=== PATIENT | male | born 1965 | race Caucasian/White ===

== ENCOUNTER 2025-01-18 16:30 | Inpatient (IN) ==
--- NOTE | 2025-01-18 17:22 | Emergency Department Note ---
Impression & Plan Acute UTI, Fever ED Provider Note NAME: JOSE BEAN AGE: 59 SEX: M : 1965 ARRIVES VIA: Walk-In INFORMANT: Patient, ED PROVIDER(S): Modesto Krause MD CHIEF COMPLAINT: Chills, constipation MEDICAL DECISION MAKING: Patient presents due to concern for difficulty with having a bowel movement and chills. IV was established and blood work was obtained. Patient ordered IV fluids KUB and labs test. Patient did have a PVR that showed only 50. No active retention. The patient's blood work showed a white count of 13.9 with a normal hemoglobin and platelet count kidney function is unremarkable. Patient did eventually spike a fever. The patient was ordered IV Tylenol and subsequently IV Toradol. Patient was covered with IV Zosyn. Urinalysis does show concern for possible UTI. Lyme's negative. Patient had complained of some prior prostate issues and unclear as to what the patient could have prostatitis. CT abdomen pelvis was ordered to evaluate the abdomen pelvis given the patient's symptoms. Negative acute. I did inform the patient patient's at bedside of the findings I did speak the on-call hospital service Dr. Pablo and the patient was admitted to the medicine service. Discussion w/ other healthcare providers: Dr. Pablo inpatient medicine service Prior /Outside records reviewed: None Differential diagnosis: Constipation, UTI, BPH, bowel obstruction, ileus, Eveline's, Lyme's, dehydration among others were considered Diagnostics, as interpreted by me: ECG: Sinus with first-degree AV block, rate of 77 prolonged [place] normal QRS duration, normal axis no ST elevations Q-wave noted in lead III. Cardiac monitoring: An order was placed for continuous cardiac monitoring. The monitor shows a rate of 89 with sinus rhythm. Patient was placed on pulse oximetry Medical decision rules: None Imaging studies: I informally interpreted the patient's KUB does not show obvious obstruction with formal report to follow. HPI: Patient presents due to concern for chills and difficulty with having a bowel movement. The patient states that the last time he was able to have a good bowel movement was yesterday. Patient states that is gone and tried to have a bowel movement 10 or so times a day but without any actual bowel movement. Patient states that he had some associated pressure pain discomfort with trying to urinate. No reported history of UTIs but reports that he did have a prostate issue years ago. Patient currently does not have an active doctor as family physician retired. Patient is not take anything for symptoms other than drinking water. He has noticed some chills and was concerned about Lyme's. Patient denies any head or neck pain. Patient denies any prior history of bowel obstruction or abdominal surgeries. PAST MEDICAL HISTORY: See Below PAST SURGICAL HISTORY: See Below SOCIAL HISTORY: See Below HOME MEDICATIONS: See Below ALLERGIES: See Below VITALS: See Below PHYSICAL EXAMINATION: GENERAL: NAD, non-toxic. Wearing glasses. EYE EXAM: Normal conjunctiva. PERRL, no anisocoria and EOM's grossly intact w/o pain. OROPHARYNX: Moist mucus membranes, grossly normal dentition. NECK: Trachea midline, no stridor. Supple, no nuchal rigidity, no adenopathy, non-tender. No signs of meningismus. FROM of the neck with good chin to chest and neck extension. LUNGS: Clear to auscultation. Normal chest wall mechanics. HEART: NSR, no MRG. ABDOMEN: Abdomen soft, non-tender, no masses, no rebound or guarding. Bowel sounds present. BACK: No CVA TTP. SKIN: No rashes and no bruising. UPPER EXTREMITIES: Upper extremities are grossly normal. LOWER EXTREMITIES: Grossly normal, no edema. NEURO EXAM: Awake and alert, follows commands, no obvious facial asymmetry, normal speech, moves all 4 extremities. Past Med/Surg History Problem List (Updated 01/20/25 @ 16:25 by Modesto Krause MD) Fever (Acute) Elevated PSA Acute UTI (Acute) Social History Smoking Status: Former smoker Second Hand Exposure: No; Do You Dip or Chew Tobacco: No; Hx Alcohol Use: Yes Hx Substance Use: No Preferred Language: Turkish Communication Ability: Effective Finance Mgr Required: No Beliefs That Will Affect Care: None Current Living Situation: Spouse Other Information That Helps Us Care for You: No Feels Safe at Home: Yes Safety Concerns: Feels Safe At This Time Assistive Devices: Glasses Allergies Allergies Allergy/AdvReac Type Severity Reaction Status Date / Time No Known Allergies Allergy Verified 01/18/25 17:13 Home Meds Home Medications Medication Instructions Recorded Confirmed ibuprofen 200 mg tablet (Advil) 400 mg PO Q6H PRN Pain 07/04/25 07/04/25 Results & Data (ED) Vital Signs Vital Signs - 24 hr 01/18/25 16:31 01/18/25 16:53 Temperature 37.5 C Temperature Source Oral Pulse Rate 95 H 90 Respiratory Rate 20 Respiratory Effort / Characteristics Non-Labored Spontaneous Respiratory Depth Normal Blood Pressure 176/97 H Blood Pressure Mean 123 Pulse Oximetry 97 Oxygen Delivery Method Room Air Sepsis Recent Fever Within 48 Hours No Sepsis New/Unexplained Change in Mental Status N/A Sepsis Action Taken by Nursing No Action Required Home Medications Current Medication List: was personally reviewed by tn Laboratory Data Attestation: I reviewed the patient's lab results. 01/20/25 07:18 01/20/25 07:18 Lab Results 01/18/25 01/18/25 01/18/25 Range/Units 17:44 18:31 19:54 WBC 13.91 H (4.8-10.8) K/ul RBC 5.10 (4.70-6.10) M/uL Hgb 16.2 (14.0-18.0) g/dl Hct 47.3 (42.0-52.0) % MCV 92.7 (80.0-100.0) fL MCH 31.8 (25.0-34.0) pg MCHC 34.2 (32.0-36.0) g/dL RDW Std Deviation 42.9 (36.4-46.3) fL RDW Coeff of Sanju 12.6 (11.5-14.5) % Plt Count 185 (130-400) K/uL MPV 10.0 (9.4-12.4) fL Immature Gran % (Auto) 0.6 % Neut % (Auto) 81.3 % Lymph % (Auto) 7.8 % Sully % (Auto) 9.9 % Eos % (Auto) 0.2 % Baso % (Auto) 0.2 % Neut # (Auto) 11.30 H (1.40-6.50) K/uL Lymph # (Auto) 1.09 L (1.20-3.40) K/uL Sully # (Auto) 1.38 H (0.11-0.59) K/uL Eos # (Auto) 0.03 (0.00-0.50) K/uL Baso # (Auto) 0.03 (0.00-0.20) K/uL Immature Gran # (Auto) 0.08 (0.01-0.20) K/uL Sodium 136 (136-145) mmol/L Potassium 4.1 (3.5-5.1) mmol/L Chloride 103 (98-107) mmol/L Carbon Dioxide 25 (21-32) mmol/L Anion Gap 8 (3-11) BUN 13 (6-23) mg/dl Creatinine 0.99 (0.6-1.4) mg/dl Est Cr Clr Drug Dosing 102.7 ml/min eGFR 87.75 BUN/Creatinine Ratio 13.1 (10-20) Glucose 94 (70-99(Fasting)) mg/dl Lactate 0.9 (0.4-2.0) mmol/L Calcium 8.5 L (8.6-10.3) mg/dl Total Bilirubin 2.0 H (0.2-1.0) mg/dl AST 22 (13-39) U/L ALT 23 (7-52) U/L Alkaline Phosphatase 61 (34-104) U/L Total Protein 7.3 (6.0-8.3) gm/dl Albumin 4.3 (3.4-5.0) gm/dl Globulin 3.0 (2.5-4.0) gm/dl Albumin/Globulin Ratio 1.4 (0.9-2) Procalcitonin 0.08 (0-0.5) ng/ml Urine Color Yellow Urine Appearance Clear (Clear) Urine pH 7.0 (4.5-7.5) Ur Specific [place] 1.020 (1.000-1.030) Urine Protein Trace H (Negative) Urine Glucose (UA) Negative (Negative) Urine Ketones Negative (Negative) Urine Blood Negative (Negative) Urine Nitrite Negative (Negative) Urine Bilirubin Negative (Negative) Urine Urobilinogen Positive H (Negative) Ur Leukocyte Esterase 2+ H (Negative) Urine WBC (Auto) >50 H (0-5) /hpf Urine RBC (Auto) 3-5 H (0-2) /hpf U Hyaline Cast (Auto) 0-2 (0-2) /lpf U Epithel Cells (Auto) 0-2 (0-2) /hpf Urine Bacteria (Auto) 3+ H (None Seen) Urine Comment Lyme Disease Screen Negative (Negative) Staphylococcus sp PCR DETECTED A (NotDetected) Bld Cult ID Panel PCR See PCR Comment (NotDetected) Administered Medications Enoxaparin Sodium (Enoxaparin Inj 40 Mg/0.4 Ml Syr) 40 mg SQ PM KERRI Stop: 02/17/25 22:20 Last Admin: 01/19/25 20:20 Dose: 40 mg Documented By: Admin: 01/18/25 22:50 Dose: 40 mg Documented By: EKF Hydromorphone HCl (Hydromorphone Inj 0.5 Mg/0.5 Ml Syr) 0.5 mg IV Q6H PRN PRN Reason: Severe Pain (Scale 7, 8, 9,10) Stop: 02/01/25 22:20 Last Admin: 01/19/25 18:37 Dose: 0.5 mg Documented By: Admin: 01/18/25 23:09 Dose: 0.5 mg Documented By: EKF Acetaminophen (Ofirmev) 1,000 mg in 100 mls @ 400 mls/hr IV Q8H PRN PRN Reason: Pain or Fever Stop: 01/21/25 22:20 Last Infusion: 01/19/25 23:01 Dose: Infused Documented By: Admin: 01/19/25 22:45 Dose: 400 mls/hr Documented By: Infusion: 01/19/25 15:01 Dose: Infused Documented By: Admin: 01/19/25 14:42 Dose: 400 mls/hr Documented By: Infusion: 01/19/25 06:26 Dose: Infused Documented By: Admin: 01/19/25 06:11 Dose: 400 mls/hr Documented By: EKF Piperacillin Sod/Tazobactam Sod (Zosyn) 4.5 gm in 100 mls @ 25 mls/hr IV Q8H KERRI; Protocol Stop: 01/29/25 00:00 Last Admin: 01/20/25 16:00 Dose: 25 mls/hr Documented By: Infusion: 01/20/25 12:00 Dose: Infused Documented By: Admin: 01/20/25 08:00 Dose: 25 mls/hr Documented By: Infusion: 01/20/25 03:07 Dose: Infused Documented By: Admin: 01/19/25 23:06 Dose: 25 mls/hr Documented By: Infusion: 01/19/25 20:19 Dose: Infused Documented By: Admin: 01/19/25 16:04 Dose: 25 mls/hr Documented By: Infusion: 01/19/25 12:04 Dose: Infused Documented By: Admin: 01/19/25 08:04 Dose: 25 mls/hr Documented By: Infusion: 01/19/25 03:27 Dose: Infused Documented By: Admin: 01/18/25 23:27 Dose: 25 mls/hr Documented By: RAYMON Tamsulosin HCl (Tamsulosin Hcl 0.4 Mg Cap) 0.4 mg PO HS KERRI Stop: 02/18/25 20:59 Last Admin: 01/19/25 20:20 Dose: 0.4 mg Documented By: SNEHA Discontinued Medications Hydromorphone HCl (Hydromorphone Inj 0.5 Mg/0.5 Ml Syr) 0.25 mg IV NOW STA Stop: 01/18/25 20:22 Last Admin: 01/18/25 20:29 Dose: 0.25 mg Documented By: JUNE Sodium Chloride (Nss) 1,000 mls @ 999 mls/hr IV .Q1H1M STA Stop: 01/18/25 18:18 Last Infusion: 01/18/25 20:10 Dose: Infused Documented By: Admin: 01/18/25 18:43 Dose: 999 mls/hr Documented By: LULU Acetaminophen (Ofirmev) 1,000 mg in 100 mls @ 400 mls/hr IV NOW STA Stop: 01/18/25 18:58 Last Infusion: 01/18/25 19:06 Dose: Infused Documented By: Admin: 01/18/25 18:49 Dose: 400 mls/hr Documented By: JUNE Piperacillin Sod/Tazobactam Sod (Zosyn) 4.5 gm in 100 mls @ 200 mls/hr IV NOW ONE; Protocol Stop: 01/18/25 19:48 Last Infusion: 01/18/25 20:09 Dose: Infused Documented By: Admin: 01/18/25 19:32 Dose: 200 mls/hr Documented By: JUNE Sodium Chloride (Nss) 1,000 mls @ 999 mls/hr IV .Q1H1M ONE Stop: 01/18/25 20:19 Last Infusion: 01/18/25 22:03 Dose: Infused Documented By: Admin: 01/18/25 19:32 Dose: 999 mls/hr Documented By: JUNE Sodium Chloride (Nss) 1,000 mls @ 100 mls/hr IV .Q10H KERRI Stop: 01/20/25 01:17 Last Infusion: 01/20/25 01:21 Dose: Infused Documented By: Admin: 01/19/25 20:20 Dose: 100 mls/hr Documented By: Infusion: 01/19/25 19:08 Dose: Infused Documented By: Admin: 01/19/25 11:08 Dose: 125 mls/hr Documented By: Infusion: 01/19/25 10:51 Dose: Infused Documented By: Infusion: 01/19/25 03:27 Dose: 125 mls/hr Documented By: Infusion: 01/18/25 23:27 Dose: 0 mls/hr Documented By: Admin: 01/18/25 22:50 Dose: 125 mls/hr Documented By: EKF Ioversol (Optiray 320 100ml) 93 ml IV ONCE ONE Stop: 01/18/25 19:37 Last Admin: 01/18/25 19:36 Dose: 93 ml Documented By: AMERICA Ketorolac Tromethamine (Ketorolac Tromethamine 15 Mg/Ml Vial) 10 mg IV NOW ONE Stop: 01/18/25 19:09 Last Admin: 01/18/25 19:10 Dose: 10 mg Documented By: JUNE Ketorolac Tromethamine (Ketorolac Tromethamine 15 Mg/Ml Vial) 15 mg IV NOW ONE Stop: 01/19/25 00:38 Last Admin: 01/19/25 00:58 Dose: 15 mg Documented By: EKF Imaging Data Radiologist's Impression: KUB X-Ray 01/18/25 17:18 Exam: KUB. History: Constipation. Altered mental status. Comparison:None. Findings: Nonspecific bowel gas pattern with scattered prominent loops of small bowel gas. No appreciated mass. No unusual calcifications. Impression: Nonspecific nonobstructive bowel gas pattern. Electronically signed by Amadeo Martin 01-18-2025 7:24 PM Abdomen/Pelvis CT 01/18/25 19:19 Clinical History: Possible prostatitis Technique: Axial computed tomography images were obtained of the abdomen and pelvis after the administration of intravenous contrast. No prior CT is available for comparison. Findings: The liver is overall of normal size, attenuation, and contour with no sign of cirrhosis or significant fatty infiltration. No liver mass lesion is seen. The portal vein is patent. The gallbladder appears unremarkable. No bile duct dilatation is noted. The spleen is of normal size. No focal splenic lesion is evident. The pancreas appears normal with no sign of acute or chronic pancreatitis and no mass lesion noted. The pancreatic duct is of normal caliber. The adrenal glands appear unremarkable. No definite renal or proximal ureteral calculi are seen on this contrast-enhanced study. There is no hydronephrosis or perinephric stranding. No renal mass lesion is identified. The aorta is of normal caliber. No abdominal adenopathy is seen. The stomach appears normal. There is no sign of small bowel obstruction. There is mild diverticulosis without evidence of diverticulitis. There is no sign of appendicitis. No free intraperitoneal fluid or air is identified. No distal ureteral or bladder calculi are seen. No bladder mass lesion is evident. The iliac arteries are of normal caliber. No pelvic adenopathy is noted. The prostate is of normal size, with no obvious sign of prostatitis seen The lungs bases appear clear. No fracture is identified. No focal osseous lesion is seen Impression: 1. Diverticulosis without evidence of diverticulitis 2. Otherwise unremarkable CT of the abdomen and pelvis Electronically signed by Sebastien Jaimes 01-18-2025 7:50 PM Discharge Plan Visit Data Chief Complaint: Constipation Stated Complaint: ?PROSTATE,CONSTIPATION,FEELING UNWELL ED Provider: Modesto Krause Discharge Problem: Acute UTI, Fever Patient Disposition: Admitted As Inpatient Condition: Good Discharge Instructions Interventions: ED Discharge Assessment Last Done: 01/18/25 21:48 Discharge Problem: Fever Qualifiers: Fever type: unspecified Qualified Code(s): R50.9 - Fever, unspecified
[2025-01-18 18:03] LABS: Hematocrit (blood only) 47.3 % (42.0-52.0); Hemoglobin 16.2 g/dl (14.0-18.0); Immature Granulocytes # (auto) 0.08 K/uL (0.01-0.20); Immature Granulocytes % (auto) 0.6 %; Mean Corpuscular Hemoglobin 31.8 pg (25.0-34.0); Mean Corpuscular Volume 92.7 fL (80.0-100.0); Platelet Count 185 K/uL (130-400); RDW Standard Deviation 42.9 fL (36.4-46.3); Red Blood Count 5.10 M/uL (4.70-6.10); White Blood Count 13.91 K/ul (4.8-10.8)
[2025-01-18 18:22] LABS: Alanine Aminotransferase 23.0 U/L (7-52); Albumin Globulin Ratio 1.4 (0.9-2); Alkaline Phosphatase 61.0 U/L (34-104); Anion Gap 8.0 (3-11); Bilirubin,Total 2.0 mg/dl (0.2-1.0); Blood Urea Nitrogen 13.0 mg/dl (6-23); Calcium 8.5 mg/dl (8.6-10.3); Carbon Dioxide 25.0 mmol/L (21-32); Chloride 103.0 mmol/L (98-107); Creatinine Clr Calc Pharmacy 102.7 ml/min; Globulin 3.0 gm/dl (2.5-4.0); Glucose 94.0 mg/dl (70-99(Fasting)); Potassium 4.1 mmol/L (3.5-5.1); Sodium 136.0 mmol/L (136-145); Total Protein 7.3 gm/dl (6.0-8.3)
[2025-01-18] MEDS: SODIUM CHLORIDE 0.9% 1,000 ML IV STA (18:43)
[2025-01-18] MEDS: ACETAMINOPHEN 1,000 MG/100 ML VIAL IV STA (18:49)
[2025-01-18 18:57] LABS: Appearance Urine Clear (Clear); Bacteria Urine Automated 3+ (None Seen); Cast Urine Automated 0-2 /lpf (0-2); Epithelial Cell Urine Auto 0-2 /hpf (0-2); Glucose Urine UA Negative (Negative); WBC Urine Automated >50 /hpf (0-5)
[2025-01-18] MEDS: KETOROLAC TROMETHAMINE 15 MG/ML VIAL IV ONE (19:10)
--- NOTE | 2025-01-18 19:26 | XRay Report ---
Exam: KUB. History: Constipation. Altered mental status. Comparison:None. Findings: Nonspecific bowel gas pattern with scattered prominent loops of small bowel gas. No appreciated mass. No unusual calcifications. Impression: Nonspecific nonobstructive bowel gas pattern. Electronically signed by Amadeo Martin 01-18-2025 7:24 PM
[2025-01-18] MEDS: SODIUM CHLORIDE 0.9% 1,000 ML IV ONE (19:32)
[2025-01-18] MEDS: PIPERACILLIN/TAZOBACTAM 4.5 GM/100 ML BAG IV ONE (19:32)
[2025-01-18] MEDS: OPTIRAY 320 100ml IV ONE (19:36)
--- NOTE | 2025-01-18 19:50 | CT Scan Report ---
Clinical History: Possible prostatitis Technique: Axial computed tomography images were obtained of the abdomen and pelvis after the administration of intravenous contrast. No prior CT is available for comparison. Findings: The liver is overall of normal size, attenuation, and contour with no sign of cirrhosis or significant fatty infiltration. No liver mass lesion is seen. The portal vein is patent. The gallbladder appears unremarkable. No bile duct dilatation is noted. The spleen is of normal size. No focal splenic lesion is evident. The pancreas appears normal with no sign of acute or chronic pancreatitis and no mass lesion noted. The pancreatic duct is of normal caliber. The adrenal glands appear unremarkable. No definite renal or proximal ureteral calculi are seen on this contrast-enhanced study. There is no hydronephrosis or perinephric stranding. No renal mass lesion is identified. The aorta is of normal caliber. No abdominal adenopathy is seen. The stomach appears normal. There is no sign of small bowel obstruction. There is mild diverticulosis without evidence of diverticulitis. There is no sign of appendicitis. No free intraperitoneal fluid or air is identified. No distal ureteral or bladder calculi are seen. No bladder mass lesion is evident. The iliac arteries are of normal caliber. No pelvic adenopathy is noted. The prostate is of normal size, with no obvious sign of prostatitis seen The lungs bases appear clear. No fracture is identified. No focal osseous lesion is seen Impression: 1. Diverticulosis without evidence of diverticulitis 2. Otherwise unremarkable CT of the abdomen and pelvis Electronically signed by Sebastien Jaimes 01-18-2025 7:50 PM
[2025-01-18] MEDS: HYDROmorphone INJ 0.5 MG/0.5 ML SYR IV STA (20:29)
--- NOTE | 2025-01-18 20:32 | History & Physical Report ---
Date of Service January 18, 2025 Assessment & Plan (1) Acute UTI: Plan: 59-year-old male with no significant past medical history comes because of fever and urinary symptoms. Patient says since yesterday he feels like moving his bowels frequently and sitting on the commode and having small amounts of bowel movements. He denies any blood in the stools. Also having burning micturition. Patient says lately he is also having prostate issues with difficulty urin ating. And today developed fevers. Body aches. Headache. Nausea. Denies runny nose or sore throat. No chest pain or shortness of breath. No abdominal pain. No rash anywhere. Spiking temperature in the ER. Hemodynamics are okay. Patient states his family doctor retired and currently does not have any PCP. He was told he has diabetes in 2020 but then he lost 40 pounds and says his sugars are running okay. He says his blood pressure goes up when he gets stressed.Lyme screen negative Acute UTI ER empirically started on Zosyn which will be continued Will follow cultures Iv fluids Possible prostatitis Possible BPH Patient is having difficulty micturition CT abdomen pelvis is okay Will follow ESR, CRP and PSA levels Place on Flomax Antibiotics as above Consult urology in a.m. for further recommendations Obesity Counseling Question of diabetes Will check HbA1c levels and lipid profile Will monitor blood pressure DVT prophylaxis Lovenox Disposition Medical floor Full code History of Present Illness Chief Complaint: Acute UTI Primary Care Provider: NO PCP 59-year-old male with no significant past medical history comes because of fever and urinary symptoms. Patient says since yesterday he feels like moving his bowels frequently and sitting on the commode and having small amounts of bowel movements. He denies any blood in the stools. Also having burning micturition. Patient says lately he is also having prostate issues with difficulty urinating. And today developed fevers. Body aches. Headache. Nausea. Denies runny nose or sore throat. No chest pain or shortness of breath. No abdominal pain. No rash anywhere. Spiking temperature in the ER. Hemodynamics are okay. Patient states his family doctor retired and currently does not have any PCP. He was told he has diabetes in 2020 but then he lost 40 pounds and says his sugars are running okay. He says his blood pressure goes up when he gets stressed.Lyme screen negative. Past medical history. As mentioned above Past surgical history. Denies any surgeries. Social history. Quit smoking 40 years ago. Alcohol drinks about 1 beer a day. No drug use. Family history. Sister had breast cancer Allergies Allergy/AdvReac Type Severity Reaction Status Date / Time No Known Allergies Allergy Verified 01/18/25 17:13 Home Medications Medication Instructions Recorded Confirmed Type ibuprofen 200 mg tablet (Advil) 400 mg PO Q6H PRN Pain 01/18/25 01/18/25 History Past Med/Surg History Problem List (Updated 01/19/25 @ 08:54 by Aleksandr Michaud MD) Elevated PSA Acute UTI Social History Smoking Status: Former smoker Second Hand Exposure: No; Do You Dip or Chew Tobacco: No; Hx Alcohol Use: Yes Hx Substance Use: No Preferred Language: Slovak Communication Ability: Effective Practical Ministries Professor Required: No Beliefs That Will Affect Care: None Current Living Situation: Spouse Other Information That Helps Us Care for You: No Feels Safe at Home: Yes Safety Concerns: Feels Safe At This Time Assistive Devices: Glasses Review of Systems Review of Systems: All systems reviewed & are unremarkable except as noted in HPI & below Physical Exam Physical Exam: General- Not in acute distress Head- atraumatic Eyes- PERRL. ENT- oropharynx clear Neck- supple, no JVD. Lungs- clear to auscultation no wheezing or crackles Heart- regular rhythm; no murmur, no gallop. Abdomen- normal bowel sounds, soft, nontender, no distension Extremities- no pretibial edema, no erythema seen Neuro- alert, oriented PERRL, no facial palsy; no dysarthria; moves extremities Results & Data Results & Data Vital Signs (Past 12 Hours) Vital Signs Temp Pulse Resp BP Pulse Ox O2 Del Method 01/18/25 19:48 38.2 C H 01/18/25 19:30 86 17 122/78 94 01/18/25 19:07 38.2 C H 01/18/25 19:00 85 18 143/91 H 95 01/18/25 18:47 147/81 H 01/18/25 18:30 39.0 C H 01/18/25 17:00 86 16 172/103 H 95 01/18/25 16:53 90 01/18/25 16:31 37.5 C 95 H 20 176/97 H 97 Room Air Diagnostic Findings Laboratory Results WBC 13.91 K/ul (4.8-10.8) H 01/18/25 17:44 RBC 5.10 M/uL (4.70-6.10) 01/18/25 17:44 Hgb 16.2 g/dl (14.0-18.0) 01/18/25 17:44 Hct 47.3 % (42.0-52.0) 01/18/25 17:44 MCV 92.7 fL (80.0-100.0) 01/18/25 17:44 MCH 31.8 pg (25.0-34.0) 01/18/25 17:44 MCHC 34.2 g/dL (32.0-36.0) 01/18/25 17:44 RDW Std Deviation 42.9 fL (36.4-46.3) 01/18/25 17:44 RDW Coeff of Sanju 12.6 % (11.5-14.5) 01/18/25 17:44 Plt Count 185 K/uL (130-400) 01/18/25 17:44 MPV 10.0 fL (9.4-12.4) 01/18/25 17:44 Immature Gran % (Auto) 0.6 % 01/18/25 17:44 Neut % (Auto) 81.3 % 01/18/25 17:44 Lymph % (Auto) 7.8 % 01/18/25 17:44 [place] % (Auto) 9.9 % 01/18/25 17:44 Eos % (Auto) 0.2 % 01/18/25 17:44 Baso % (Auto) 0.2 % 01/18/25 17:44 Neut # (Auto) 11.30 K/uL (1.40-6.50) H 01/18/25 17:44 Lymph # (Auto) 1.09 K/uL (1.20-3.40) L 01/18/25 17:44 [place] # (Auto) 1.38 K/uL (0.11-0.59) H 01/18/25 17:44 Eos # (Auto) 0.03 K/uL (0.00-0.50) 01/18/25 17:44 Baso # (Auto) 0.03 K/uL (0.00-0.20) 01/18/25 17:44 Immature Gran # (Auto) 0.08 K/uL (0.01-0.20) 01/18/25 17:44 Sodium 136 mmol/L (136-145) 01/18/25 17:44 Potassium 4.1 mmol/L (3.5-5.1) 01/18/25 17:44 Chloride 103 mmol/L (98-107) 01/18/25 17:44 Carbon Dioxide 25 mmol/L (21-32) 01/18/25 17:44 Anion Gap 8 (3-11) 01/18/25 17:44 BUN 13 mg/dl (6-23) 01/18/25 17:44 Creatinine 0.99 mg/dl (0.6-1.4) 01/18/25 17:44 Est Cr Clr Drug Dosing 102.7 ml/min 01/18/25 17:44 eGFR 87.75 01/18/25 17:44 BUN/Creatinine Ratio 13.1 (10-20) 01/18/25 17:44 Glucose 94 mg/dl (70-99(Fasting)) 01/18/25 17:44 Lactate 0.9 mmol/L (0.4-2.0) 01/18/25 19:54 Calcium 8.5 mg/dl (8.6-10.3) L 01/18/25 17:44 Total Bilirubin 2.0 mg/dl (0.2-1.0) H 01/18/25 17:44 AST 22 U/L (13-39) 01/18/25 17:44 ALT 23 U/L (7-52) 01/18/25 17:44 Alkaline Phosphatase 61 U/L (34-104) 01/18/25 17:44 Total Protein 7.3 gm/dl (6.0-8.3) 01/18/25 17:44 Albumin 4.3 gm/dl (3.4-5.0) 01/18/25 17:44 Globulin 3.0 gm/dl (2.5-4.0) 01/18/25 17:44 Albumin/Globulin Ratio 1.4 (0.9-2) 01/18/25 17:44 Urine Color Yellow 01/18/25 18:31 Urine Appearance Clear (Clear) 01/18/25 18:31 Urine pH 7.0 (4.5-7.5) 01/18/25 18:31 Ur Specific [place] 1.020 (1.000-1.030) 01/18/25 18:31 Urine Protein Trace (Negative) H 01/18/25 18:31 Urine Glucose (UA) Negative (Negative) 01/18/25 18:31 Urine Ketones Negative (Negative) 01/18/25 18: Urine Blood Negative (Negative) 01/18/25 18: Urine Nitrite Negative (Negative) 01/18/25 18: Urine Bilirubin Negative (Negative) 01/18/25 18:31 Urine Urobilinogen Positive (Negative) H 01/18/25 18:31 Ur Leukocyte Esterase 2+ (Negative) H 01/18/25 18:31 Urine WBC (Auto) >50 /hpf (0-5) H 01/18/25 18:31 Urine RBC (Auto) 3-5 /hpf (0-2) H 01/18/25 18:31 U Hyaline Cast (Auto) 0-2 /lpf (0-2) 01/18/25 18:31 U Epithel Cells (Auto) 0-2 /hpf (0-2) 01/18/25 18:31 Urine Bacteria (Auto) 3+ (None Seen) H 01/18/25 18:31 Urine Comment 01/18/25 18:31 Lyme Disease Screen Negative (Negative) 01/18/25 17:44 Impressions KUB X-Ray 01/18/25 17:18 Exam: KUB. History: Constipation. Altered mental status. Comparison:None. Findings: Nonspecific bowel gas pattern with scattered prominent loops of small bowel gas. No appreciated mass. No unusual calcifications. Impression: Nonspecific nonobstructive bowel gas pattern. Electronically signed by Amadeo Martin 01-18-2025 7:24 PM Abdomen/Pelvis CT 01/18/25 19:19 Clinical History: Possible prostatitis Technique: Axial computed tomography images were obtained of the abdomen and pelvis after the administration of intravenous contrast. No prior CT is available for comparison. Findings: The liver is overall of normal size, attenuation, and contour with no sign of cirrhosis or significant fatty infiltration. No liver mass lesion is seen. The portal vein is patent. The gallbladder appears unremarkable. No bile duct dilatation is noted. The spleen is of normal size. No focal splenic lesion is evident. The pancreas appears normal with no sign of acute or chronic pancreatitis and no mass lesion noted. The pancreatic duct is of normal caliber. The adrenal glands appear unremarkable. No definite renal or proximal ureteral calculi are seen on this contrast-enhanced study. There is no hydronephrosis or perinephric stranding. No renal mass lesion is identified. The aorta is of normal caliber. No abdominal adenopathy is seen. The stomach appears normal. There is no sign of small bowel obstruction. There is mild diverticulosis without evidence of diverticulitis. There is no sign of appendicitis. No free intraperitoneal fluid or air is identified. No distal ureteral or bladder calculi are seen. No bladder mass lesion is evident. The iliac arteries are of normal caliber. No pelvic adenopathy is noted. The prostate is of normal size, with no obvious sign of prostatitis seen The lungs bases appear clear. No fracture is identified. No focal osseous lesion is seen Impression: 1. Diverticulosis without evidence of diverticulitis 2. Otherwise unremarkable CT of the abdomen and pelvis Electronically signed by Sebastien Jaimes 01-18-2025 7:50 PM Code Status & VTE Plan VTE Prophylaxis Plan VTE Prophylaxis will be ordered: Yes
[2025-01-18] MEDS: SODIUM CHLORIDE 0.9% 1,000 ML IV SCH (22:50)
[2025-01-18] MEDS: ENOXAPARIN INJ 40 MG/0.4 ML SYR SQ SCH (22:50)
[2025-01-18] MEDS: HYDROmorphone INJ 0.5 MG/0.5 ML SYR IV PRN (23:09)
[2025-01-18] MEDS: PIPERACILLIN/TAZOBACTAM 4.5 GM/100 ML BAG IV SCH (23:27)
[2025-01-19] MEDS: KETOROLAC TROMETHAMINE 15 MG/ML VIAL IV ONE (00:58)
[2025-01-19 06:09] LABS: Hematocrit (blood only) 45.3 % (42.0-52.0); Hemoglobin 15.1 g/dl (14.0-18.0); Immature Granulocytes # (auto) 0.08 K/uL (0.01-0.20); Immature Granulocytes % (auto) 0.5 %; Mean Corpuscular Hemoglobin 31.5 pg (25.0-34.0); Mean Corpuscular Volume 94.4 fL (80.0-100.0); Platelet Count 176 K/uL (130-400); RDW Standard Deviation 44.7 fL (36.4-46.3); Red Blood Count 4.80 M/uL (4.70-6.10); White Blood Count 15.32 K/ul (4.8-10.8)
[2025-01-19] MEDS: ACETAMINOPHEN 1,000 MG/100 ML VIAL IV PRN (06:11)
[2025-01-19 06:24] LABS: Anion Gap 8.0 (3-11); Blood Urea Nitrogen 11.0 mg/dl (6-23); Calcium 7.9 mg/dl (8.6-10.3); Carbon Dioxide 23.0 mmol/L (21-32); Chloride 107.0 mmol/L (98-107); Cholesterol 195.0 mg/dl (0-200); Creatinine Clr Calc Pharmacy 101.8 ml/min; Glucose 125.0 mg/dl (70-99(Fasting)); HDL Cholesterol 43.0 mg/dl; Magnesium 1.8 mg/dl (1.7-2.4); Potassium 3.6 mmol/L (3.5-5.1); Sodium 138.0 mmol/L (136-145); Triglycerides 115.0 mg/dl (0-150)
[2025-01-19 07:11] LABS: Hemoglobin A1C 6.0 % (4.5-5.6)
--- NOTE | 2025-01-19 08:54 | Urology Consultation ---
Date of Consultation January 19, 2025 Assessment & Plan (1) Acute UTI: (2) Elevated PSA: Plan 59-year-old male admitted with fevers and suspicion of urinary tract infection No acute urologic intervention necessary Continue broad-spectrum antibiotics and follow-up cultures. Narrow when the sensitivities return. Recommend a total of 10 to 14 days of antibiotics PSA is likely elevated due to acute infection and recommend repeating in 1 to 2 months Urology to follow peripherally. Message has been sent for follow-up for outpatient workup History of Present Illness Attending Physician: Lovely Jameson MD History of Present Illness 59-year-old male presenting to the emergency department on 01/18/2025 with fevers and urinary symptoms. Highest temperature was 38.9. Otherwise hemodynamically stable. Labs on arrival showed a white count of 13.9 and creatinine of 0.99. Labs today show a white count of 15.3 creatinine of 0.99. PSA was drawn which was mildly elevated at 4.42. Urinalysis was positive for leukocyte esterase, WBCs, RBCs and 3+ bacteria. CT scan of the abdomen pelvis was performed which I independently reviewed and shows no significant hydronephrosis or abnormalities. He was started on Zosyn. Urine culture is preliminarily growing Pseudomonas. Subjectively reports feeling better this morning Allergies Allergy/AdvReac Type Severity Reaction Status Date / Time No Known Allergies Allergy Verified 01/18/25 17:13 Home Medications Medication Instructions Recorded Confirmed Type ibuprofen 200 mg tablet (Advil) 400 mg PO Q6H PRN Pain 01/18/25 01/18/25 History Patient History Social History Smoking Status: Former smoker Second Hand Exposure: No; Do You Dip or Chew Tobacco: No; Hx Alcohol Use: Yes Hx Substance Use: No Preferred Language: Polish Communication Ability: Effective Police Lieutenant Required: No Beliefs That Will Affect Care: None Current Living Situation: Spouse Other Information That Helps Us Care for You: No Feels Safe at Home: Yes Safety Concerns: Feels Safe At This Time Assistive Devices: Glasses Physical Exam Physical Exam: General: Alert and oriented, no acute distress HEENT: Normocephalic, mucous membranes moist Pulmonary: Nonlabored respirations Abdomen: Nondistended Extremities: Moves all 4 spontaneously Neuro: No gross deficits Skin: Warm, dry, no rashes noted Results & Data Vital Signs (Past 12 Hours) Vital Signs Temp Pulse Resp BP Pulse Ox O2 Del Method 07/05/25 07:33 37.1 C 79 16 144/89 H 99 Room Air 01/19/25 06:42 37.3 C 01/19/25 06:09 38.9 C H 01/19/25 01:21 36.6 C 01/18/25 23:34 37.2 C 01/18/25 22:20 36.8 C 76 18 142/85 H 96 Room Air PG Care Time/CCT Total # of Minutes Spent Total Time Spent with Patient: Total time spent is greater than 50% in coordination of care (as documented) at patient's floor/unit and/or counseling patient: Coding Level of Care Code 76919 IN/OBS CONSULT LVL 3,45M Diagnoses Acute UTI N39.0 Elevated PSA R97.20
--- NOTE | 2025-01-19 10:30 | Hospitalist Progress Note ---
Date of Service January 19, 2025 Assessment & Plan (1) Acute UTI: Plan: 59-year-old male with no significant past medical history comes because of fever and urinary symptoms. Patient reported loose stool, burning micturition He also reported some difficulty urinating and urinary frequency. Acute UTI Possible prostatitis Urine culture growing pseudomonas Blood cultures still in lab Elevated CRP and PSA is 4.42 CT abd and pelvis did not show any acute abnormalities Continue IV zosyn Will follow up sensitivities Will need at least 2 weeks of antibiotics Continue flomax Obesity Prediabetes HbA1c 6 Life style modification education Monitor BP DVT prophylaxis Lovenox Full code I spent a total of 50 minutes coordinating, documenting and providing care for this patient excluding time spent in performance of separately billed services Admission and Anticipated Discharge Date Admission Date: January 18, 2025 Subjective Patient seen and examined Reports feeling better today Reports dysuria and freq are improving Denied abd pain, diarrhea, flank pain, cough, SOB Physical Exam Constitutional: + well hydrated; no acute distress Eyes: PERRL, conjunctivae normal, anicteric sclerae ENMT: external ear and nose normal, oropharynx normal Respiratory: normal respiratory effort, lungs clear to auscultation Cardiovascular: Rate/Rhythm: regular rate and regular rhythm Gastrointestinal (Abdomen): normal bowel sounds, soft, nontender, no hepatosplenomegaly Musculoskeletal: No pedal edema Neurologic: PERRL, EOMI, accommodation nl, no face palsy, no dysarthria Psychiatric: A+Ox3, euthymic affect Results & Data Results & Data Vital Signs (Past 12 Hours) Vital Signs Temp Pulse Resp BP Pulse Ox O2 Del Method 01/19/25 07:33 37.1 C 79 16 144/89 H 99 Room Air 01/19/25 06:42 37.3 C 01/19/25 06:09 38.9 C H 01/19/25 01:21 36.6 C 01/18/25 23:34 37.2 C Laboratory Results Abnormal lab results 01/18/25 01/18/25 01/19/25 Range/Units 17:44 18:31 05:32 WBC 13.91 H 15.32 H (4.8-10.8) K/ul Neut # (Auto) 11.30 H 12.29 H (1.40-6.50) K/uL Lymph # (Auto) 1.09 L (1.20-3.40) K/uL [place] # (Auto) 1.38 H 1.40 H (0.11-0.59) K/uL ESR 24 H (0-20) mm/hr Glucose 125 H (70-99(Fasting)) mg/dl Hemoglobin A1c 6.0 H (4.5-5.6) % Calcium 8.5 L 7.9 L (8.6-10.3) mg/dl Total Bilirubin 2.0 H (0.2-1.0) mg/dl C-Reactive Protein 16.69 H (0-0.5) mg/dl Prostate Specific Ag 4.427 H (0-4) ng/ml Urine Protein Trace H (Negative) Urine Urobilinogen Positive H (Negative) Ur Leukocyte Esterase 2+ H (Negative) Urine WBC (Auto) >50 H (0-5) /hpf Urine RBC (Auto) 3-5 H (0-2) /hpf Urine Bacteria (Auto) 3+ H (None Seen)
[2025-01-19] MEDS: TAMSULOSIN HCL 0.4 MG CAP PO SCH (20:20)
[2025-01-19 22:11] LABS: A calco-baum cmplx NotReported Not Detected (NotDetected); Bact fragilis Not Reported Not Detected (NotDetected); Blood Culture Id Panel See PCR Comment (NotDetected); C auris Not Reported Not Detected (NotDetected); Calbicans Not Reported Not Detected (NotDetected); Candida glabrata Not Reported Not Detected (NotDetected); Candida krusei Not Reported Not Detected (NotDetected); Cneoformans/gatti Not Reported Not Detected (NotDetected); Cparapsilosis Not Reported Not Detected (NotDetected); Ctropicalis Not Reported Not Detected (NotDetected); E cloacae compx Not Reported Not Detected (NotDetected); Efaecalis Not Reported Not Detected (NotDetected); Efaecium Not Reported Not Detected (NotDetected); Enterobacterales Not Reported Not Detected (NotDetected); Escherichia coli Not Reported Not Detected (NotDetected); H influenzae Not Reported Not Detected (NotDetected); K aerogenes Not Reported Not Detected (NotDetected); Koxytoca Not Reported Not Detected (NotDetected); Kpneumoniae grp Not Reported Not Detected (NotDetected); Lmonocyt Not Reported Not Detected (NotDetected); N meningitidis Not Reported Not Detected (NotDetected); P aeruginosa Not Reported Not Detected (NotDetected); Proteus spp Not Reported Not Detected (NotDetected); Salmonella spp Not Reported Not Detected (NotDetected); Staph lugdunensis Not Reported Not Detected (NotDetected); Staph spp. Not Reported DETECTED (NotDetected); Staphaureus Not Reported Not Detected (NotDetected); Staphepi Not Reported Not Detected (NotDetected); Stenmaltophilia Not Reported Not Detected (NotDetected); Strep agal(GrpB) Not Reported Not Detected (NotDetected); Strep pneum Not Reported Not Detected (NotDetected); Strep pyog (GrpA) Not Reported Not Detected (NotDetected); Strep spp Not Reported Not Detected (NotDetected)
[2025-01-19 23:03] LABS: Staphylococcus spp. DETECTED (NotDetected)
[2025-01-20 07:41] LABS: Hematocrit (blood only) 40.1 % (42.0-52.0); Hemoglobin 14.2 g/dl (14.0-18.0); Mean Corpuscular Hemoglobin 32.9 pg (25.0-34.0); Mean Corpuscular Volume 92.8 fL (80.0-100.0); Platelet Count 180 K/uL (130-400); RDW Standard Deviation 42.0 fL (36.4-46.3); Red Blood Count 4.32 M/uL (4.70-6.10); White Blood Count 12.52 K/ul (4.8-10.8)
[2025-01-20 07:59] LABS: Alanine Aminotransferase 17.0 U/L (7-52); Albumin Globulin Ratio 1.3 (0.9-2); Alkaline Phosphatase 51.0 U/L (34-104); Anion Gap 4.0 (3-11); Bilirubin,Total 1.5 mg/dl (0.2-1.0); Blood Urea Nitrogen 9.0 mg/dl (6-23); Calcium 8.1 mg/dl (8.6-10.3); Carbon Dioxide 24.0 mmol/L (21-32); Chloride 109.0 mmol/L (98-107); Creatinine Clr Calc Pharmacy 120.0 ml/min; Globulin 2.8 gm/dl (2.5-4.0); Glucose 111.0 mg/dl (70-99(Fasting)); Potassium 3.8 mmol/L (3.5-5.1); Sodium 137.0 mmol/L (136-145); Total Protein 6.3 gm/dl (6.0-8.3)
--- NOTE | 2025-01-20 09:43 | Hospitalist Progress Note ---
Date of Service January 20, 2025 Assessment & Plan (1) Acute UTI: Plan: 59-year-old male with no significant past medical history comes because of fever and urinary symptoms. Patient reported loose stool, burning micturition He also reported some difficulty urinating and urinary frequency. Acute UTI Possible prostatitis Urine culture growing pseudomonas Blood cultures - 07/21 bottle growing staph hominis likely contaminant Elevated CRP and PSA is 4.42 CT abd and pelvis did not show any acute abnormalities Leukocytosis improving Continue IV zosyn Plan to deescalate to po tomorrow Will need at least 2 weeks of antibiotics Continue flomax Obesity Prediabetes HbA1c 6 Life style modification education Monitor BP DVT prophylaxis Lovenox Full code Updated over the phone I spent a total of 50 minutes coordinating, documenting and providing care for this patient excluding time spent in performance of separately billed services Admission and Anticipated Discharge Date Admission Date: January 18, 2025 Subjective Patient seen and examined Reports feeling better today Reports dysuria is almost resolved but still having some urinary difficulty. No hematuria/feeling of incomplete emptying Last fever was yesterday Denied abd pain, diarrhea, flank pain, cough, SOB Physical Exam Constitutional: + well hydrated; no acute distress Eyes: PERRL, conjunctivae normal, anicteric sclerae ENMT: external ear and nose normal, oropharynx normal Respiratory: normal respiratory effort, lungs clear to auscultation Cardiovascular: Rate/Rhythm: regular rate and regular rhythm Gastrointestinal (Abdomen): normal bowel sounds, soft, nontender, no hepatosplenomegaly Musculoskeletal: No pedal edema Neurologic: PERRL, EOMI, accommodation nl, no face palsy, no dysarthria Psychiatric: A+Ox3, euthymic affect Results & Data Results & Data Vital Signs (Past 12 Hours) Vital Signs Temp Pulse Resp BP Pulse Ox O2 Del Method 01/20/25 07:01 36.8 C 77 18 143/84 H 94 Room Air Laboratory Results Abnormal lab results 01/18/25 01/20/25 Range/Units 19:54 07:18 WBC 12.52 H (4.8-10.8) K/ul RBC 4.32 L (4.70-6.10) M/uL Hct 40.1 L (42.0-52.0) % Chloride 109 H (98-107) mmol/L Glucose 111 H (70-99(Fasting)) mg/dl Calcium 8.1 L (8.6-10.3) mg/dl Total Bilirubin 1.5 H (0.2-1.0) mg/dl Staphylococcus sp PCR DETECTED A (NotDetected)
--- NOTE | 2025-01-20 13:30 | Electrocardiogram Report ---
Test Reason : Blood Pressure : */* mmHG Vent. Rate : 77 BPM Atrial Rate : 77 BPM P-R Int : 216 ms QRS Dur : 102 ms QT Int : 406 ms P-R-T Axes : 51 31 -4 degrees QTcB Int : 459 ms Sinus rhythm with 1st degree A-V block Otherwise normal ECG No previous ECGs available Confirmed by Callum Jones ([id number]) on 01/20/2025 1:29:34 PM Referred By: REFERRED SELF Confirmed By: Callum Jones
[2025-01-21] MEDS: MELATONIN 3 MG TAB PO PRN (00:33)
[2025-01-21 07:26] VITALS: BP 137/82; PULSE 64; RESP 14; TEMP 98.1; O2SAT 95
[2025-01-21 08:16] LABS: Hematocrit (blood only) 41.6 % (42.0-52.0); Hemoglobin 14.7 g/dl (14.0-18.0); Mean Corpuscular Hemoglobin 32.6 pg (25.0-34.0); Mean Corpuscular Volume 92.2 fL (80.0-100.0); Platelet Count 210 K/uL (130-400); RDW Standard Deviation 41.8 fL (36.4-46.3); Red Blood Count 4.51 M/uL (4.70-6.10); White Blood Count 7.91 K/ul (4.8-10.8)
[2025-01-21 08:33] LABS: Alanine Aminotransferase 18.0 U/L (7-52); Albumin Globulin Ratio 1.2 (0.9-2); Alkaline Phosphatase 50.0 U/L (34-104); Anion Gap 8.0 (3-11); Bilirubin,Total 1.1 mg/dl (0.2-1.0); Blood Urea Nitrogen 13.0 mg/dl (6-23); Calcium 8.5 mg/dl (8.6-10.3); Carbon Dioxide 22.0 mmol/L (21-32); Chloride 108.0 mmol/L (98-107); Creatinine Clr Calc Pharmacy 120.0 ml/min; Globulin 3.0 gm/dl (2.5-4.0); Glucose 106.0 mg/dl (70-99(Fasting)); Potassium 3.9 mmol/L (3.5-5.1); Sodium 138.0 mmol/L (136-145); Total Protein 6.7 gm/dl (6.0-8.3)
--- NOTE | 2025-01-21 11:47 | Discharge Summary ---
Date of Service January 21, 2025 Admission HPI Per Admitting Provider 59-year-old male with no significant past medical history comes because of fever and urinary symptoms. Patient says since previous day he feels like moving his bowels frequently and sitting on the commode and having small amounts of bowel movements. He denies any blood in the stools. Also having burning micturition. Patient says lately he is also having prostate issues with difficulty urinating. And today developed fevers. Body aches. Headache. Nausea. Denies runny nose or sore throat. No chest pain or shortness of breath. No abdominal pain. No rash anywhere. Spiking temperature in the ER. Hemodynamics are okay. Patient states his family doctor retired and currently does not have any PCP. He was told he has diabetes in 2020 but then he lost 40 pounds and says his sugars are running okay. He says his blood pressure goes up when he gets stressed.Lyme screen negative. Past medical history. As mentioned above Past surgical history. Denies any surgeries. Social history. Quit smoking 40 years ago. Alcohol drinks about 1 beer a day. No drug use. Family history. Sister had breast cancer Admission Exam Per Admitting Provider General- Not in acute distress Head- atraumatic Eyes- PERRL. ENT- oropharynx clear Neck- supple, no JVD. Lungs- clear to auscultation no wheezing or crackles Heart- regular rhythm; no murmur, no gallop. Abdomen- normal bowel sounds, soft, nontender, no distension Extremities- no pretibial edema, no erythema seen Neuro- alert, oriented PERRL, no facial palsy; no dysarthria; moves extremities Principal Diagnosis Complicated urinary tract infection Prediabetes Discharge Exam Constitutional + well hydrated; no acute distress Eyes PERRL, conjunctivae normal, anicteric sclerae ENMT external ear and nose normal, oropharynx normal Respiratory normal respiratory effort, lungs clear to auscultation Cardiovascular Rate/Rhythm: regular rate and regular rhythm Gastrointestinal (Abdomen) normal bowel sounds, soft, nontender, no hepatosplenomegaly Musculoskeletal No pedal edema Neurologic PERRL, EOMI, accommodation nl, no face palsy, no dysarthria Psychiatric A+Ox3, euthymic affect Discharge Data Allergies Allergy/AdvReac Type Severity Reaction Status Date / Time No Known Allergies Allergy Verified 01/18/25 17:13 Consultations 01/18/25 19:38 ED Decision to Admit Stat 01/19/25 08:00 Consult Urology Routine Ordered Studies 01/18/25 19:19 CT abd pelvis IV con only Stat Hospital Course (1) Acute UTI: 59-year-old male with no significant past medical history comes because of fever and urinary symptoms. Patient reported loose stool, burning micturition He also reported some difficulty urinating and urinary frequency. Acute UTI Possible prostatitis Urine culture growing pseudomonas Blood cultures - 07/21 bottle growing staph hominis likely contaminant Elevated CRP and PSA is 4.42 CT abd and pelvis did not show any acute abnormalities Patient was started on IV zosyn for complicated UTI. Cannot rule out prostatitis Patient was also started on flomax Leukocytosis resolved Patient seen and examined today. He reports dysuria and frequency are resolved and no difficulty urinating today Antibiotics changed to levofloxacin on discharge for another 10 days to complete a total of 14 days therapy Continue flomax Patient to follow up with PCP. Elevated PSA likely related to infection. PCP to recheck in 1-2 months Obesity Prediabetes HbA1c 6 Provided Life style modification education including diet, exercise and weight loss Total Time Total Time Spent Total Time Spent (In Minutes): 40 Total Time Includes: Examination of the Patient, Discharge Planning and Medication Reconciliation Discharge Plan Discharge Items Patient Disposition: Home - Self-Care Reason For Visit: ACUTE UTI, PROSTATITIS? Discharge Diagnosis: Complicated urinary tract infection Prediabetes Condition on Discharge: Good Activity: Resume your previous activity Non-emergency contact: Primary Care Provider Call non-emergency contact if: you have any medication questions Follow-up/Referrals: Nathaniel Blackwell MD [Outside Practitioners] - (Date & Time 01/29/2025 9:40 AM Provider: Nathaniel Blackwell MD [facility]) Aleksandr Michaud MD [Physician] - (The office will call you with a follow up appointment.) Diet: Carb Consistent or DM2 Addtl Attending Provider Instructions: Mr Reina You were hospitalized and managed for the above listed diagnoses. You are being discharged on oral antibiotics levofloxacin for next 10 days to complete treatment. You were also started on flomax Please ensure follow up with your Primary Doctor. Your Primary Doctor should recheck your PSA in 1-2 months It was a pleasure taking care of you Pending Studies at Discharge: No Stand-Alone Forms: My [facility], Smoking Cessation Medications and DC Order Prescriptions: New tamsulosin 0.4 mg Capsule 0.4 mg PO HS 30 Days Qty: 30 0RF levofloxacin 750 mg tablet 750 mg PO DAILY 10 Days Qty: 10 0RF Continued ibuprofen [Advil] 200 mg Tablet 400 mg PO Q6H PRN (Reason: Pain) Discharge Orders: Discharge Order (Routine); Ordered 01/21/25 Ordered By: Lovely Keenan/Other Patient Handouts: Prediabetes, 5 Steps for Eating Healthier Admission Data Admit Date/Time: 01/18/25 20:21 Attending Provider: Lovely Jameson I. Admit Provider: Saurabh Pablo Primary Care Provider: PCP,NO Other Providers: Saurabh Pablo; Lazaro Gomez; Kim Tan; Jack Cruz; Selene Duque; Jonas Flynn; Mehreen Kiran; Jeremy Nuñez; Unique Ceron; Vance Steiner; Aleksandr Michaud Other Interventions: Discharge Summary Assessment (RN) Last Done: 01/21/25 12:38
== END 2025-01-21 13:16 | disposition home or self-care (01) | DRG 728 ==
LOC: ED 16:30 → 3W 20:21